=== PATIENT | female | born 1990 | race Caucasian/White ===

== ENCOUNTER 2018-09-08 17:00 | Inpatient (IN) | payer OTHER ==
[~2018-09-08] VITALS: Ht 167.6 cm; Wt 84.5 kg
[2018-09-08 17:24] VITALS: Ht 167.6 cm; Wt 84.5 kg
[2018-09-08 17:25] VITALS: BP 105/65; RESP 18
[2018-09-08] MEDS: LACTATED RINGER'S 1,000 ML IV SCH (18:54)
--- NOTE | 2018-09-08 19:30 | HP ---
Date/Time of Note Date/Time of Note DATE: 09/08/18 TIME: 18:51 OB - History Hx of Present Free Text/Dictation 09/08/2018 : 2 Para: 0 Care: Good Care Other Concerns: 27 years old with care with [facility] and non complicated care, transferred from [place] today due to insurance issue after she presented to ED for cat bite and scratch care with Dr. Oren Duvall at [facility],. Denies any complication. Stated JUMA: 10/13/2018 she states that was bitten and scratched by an outdoor cat yesterday at 7: 00 PM and due to pain and swelling of her RT hand in the area of bite, presented to [facility]. Patient cat was outdoor. Reports relief manager of the cat that was a family member, 7 years ago fed the cat first and had him since then. She unsure if the cat's vaccination was complete or not, but believes heard from her family member that he is current for shots. She denies any known reported behaviour in the cat. States [place] now. Records reviewed. Patient had an x-ray after evaluated in the emergency room of her right hand which was essentially unremarkable. She also had started on Unisom. Patient denied any leaking of fluid, vaginal bleeding or decreased movement. She denies any obstetrical condition and complaints. She had been seen at [facility] by RETAIL SALES ADVISOR and had a NST that was apparently unremarkable except loss of accelerations since the patient had been receiving IV morphine in the emergency room. Records also telephone consult was placed in the emergency room which recommended continuing expectant management and antibiotics as long as the swelling and pain does not worsen. Patient currently reports worsening of her pain. Has been receiving IV morphine and IV Tylenol and a regular basis due to pain. She is unable to move her fingers and experienced significant pain up and movement of the MCPs. She denies any fever or chills. Past Family/Social History * Past Medical, Surgical, Family and Obstetric Histories reviewed from chart. OB Admission Exam Vital Signs Vital Signs Vital Signs Date Temp Pulse Resp B/P (MAP) Pulse Ox O2 O2 Flow FiO2 Time Delivery Rate 09/08/18 98.6 18 105/65 Room Air 17:25 (78) Physical Exam HEENT: WNL Heart: Rhythm Normal Lungs: Clear Abdomen: WNL Extremities: Other (There is two small opening on the dorsum of the RT hand in the area of cat's bite with moderate swelling on the dorsum of the RT hand, There is moderate to severe tenderness in the area of swelling and cat bite. there is no drainage from the area. ) Varibility: Moderate Contractions on Admission: None OB Assessment/Plan Other Assessment: IUP at 35 weeks by stated date RT hand pain after cat bite and scratch Significant pain in the area and moderate swelling Initial Xray in ED at [facility], per report was negative She does not have currently any obstetrical problems. On Antibiotics, has received Unsyum at [facility], Symptoms progressing ID and Ortho consulted Due to Risk for MRSA, I will start her on Vancomycin, until I receive ID recommendation. Called Dr. Mary hitchcock, agreed to see the patient urgently ID consult placed.Talked to [facility] urgent line and talked to FIRESETTER who agreed to see the patient urgently Medicine aware, as I was called in am by Hospitalist, who agreed to see and follow up and coordinate the care after admission and aware Labs, CBC, Type and screen Keep the patient NPO in case patient needs any procedure especially hand surgery. IV fluids Patient states received Tdap 3 days ago. Fiance states the cat was a barn cat, and according to his knowledge, cat received Rabies shot and was up to date for all immunization. He will attempt to provide the proof of vaccination soon. Follow up with ID for recommendation. NST/ BPP and EFW by OB ultrasound wound care, keeping clean with Betadine. Plan of care discussed with the patient and RN VIANEY ROMERO MD Sep 08, 2018 19:23
[2018-09-08] MEDS ORDERED: VANCOMYCIN IV PER PHARMACY XX SCH (20:00)
[2018-09-08] MEDS ORDERED: AMPICILLIN/SULB 3 GM/NS (PMX) 100 ML IVPB SCH (20:00)
[2018-09-08] MEDS: morphine 4 MG/ML VIAL IV PRN (20:33)
[2018-09-08] MEDS ORDERED: VANCOMYCIN HCL 1.75 GM in SOD CHLORIDE 0.9% 500 ML IVPB ONE (21:00)
[2018-09-08] MEDS ORDERED: ACETAMINOPHEN 325 MG TAB PO PRN (21:00)
[2018-09-09] MEDS: HYDROCODONE/APAP (7.5/325) TAB PO PRN ×3 (00:07→16:34)
[2018-09-09] MEDS: PRENATAL VITAMIN PO SCH ×2 (00:46→22:55)
--- NOTE | 2018-09-09 01:00 | CONS ---
DATE OF ADMISSION: 09/08/2018 DATE OF CONSULTATION: 09/08/2018 TYPE OF CONSULTATION: Infectious disease. REASON FOR CONSULTATION: Antibiotic management. HISTORY OF PRESENT ILLNESS: Santa Fletcher is a 27-year-old female, 2, who comes in now wit h cat bite and is being seen for antibiotic management. The patient is I believe 35 weeks H er JUMA is 10/13/2018. She was bitten and scratched by an outdoor cat yesterday at 7:00 p.m. Due to pain and swelling of the right hand, she went to [facility]. The cat is supposedly family membe r. She is unsure of the cat's vaccinations are complete but believes that ____ from her family membe rs that the cat is ____. She denies any fever or chills. She lives in ____ now. X-ray of the right hand was essentially unremarkable. She was started on Unasyn. She denies any other specific proble ms. She was seen at [facility] and was admitted to the hospital. PAST MEDICAL HISTORY: Operations as outlined. FAMILY HISTORY: Noncontributory. SOCIAL HISTORY: She does not smoke, drink or abuse drugs. ALLERGIES: NONE TO PENICILLIN, SULFA OR FOODS. MEDICATIONS: Per chart. REVIEW OF SYSTEMS: Noncontributory. PHYSICAL EXAMINATION: GENERAL: She is a well-developed, well-nourished, somewhat obese female, awake, responsive, in no ac [place] distress. VITAL SIGNS: Stable. She is afebrile. SKIN: Without generalized rash. HEENT: Within normal limits. NECK: Supple. LYMPH NODES: None palpable. CHEST: Decreased breath sounds at the bases. HEART: Without murmur or gallop. ABDOMEN: Soft. She is obviously 35 weeks. EXTREMITIES: There are 2 small openings on the dorsum of the right hand in the area of the cat bite with moderate swelling on the dorsum of the right hand, moderate to severe tenderness in the area of the swelling. No drainage from the area. RECTAL AND GENITAL: Deferred. NEUROLOGIC: No focal neurological abnormality. IMPRESSION AND PLAN: I agree with Unasyn 3 grams IV piggyback q.6h. The hand should be elevated on 3 pillows or on an IV pole. She should be seen by orthopedics. I will dictate my findings to Dr. Adalberto echevarria and to Dr. Randle. Of note, the patient's white count 13.7, H and H of 10.3 and 31.1, platelet count 216,000. BUN and creatinine is 9/0.54. Dictated By: LA LINCOLN MD, JD/NTS Conf#: [id number] DID#: [id number] CC: VIANEY RANDLE MD; TARUN ARELLANO;*End*
--- NOTE | 2018-09-09 01:06 | CONS ---
DATE OF ADMISSION: 09/08/2018 DATE OF CONSULTATION: 09/08/2018 TYPE OF CONSULTATION: Orthopedic surgical. HISTORY OF PRESENT ILLNESS: The patient is a 27-year-old female female who is going t hrough the care who was transferred in from the emergency room of the [facility] to [facility] because of the insurance arrangement. She went to the emergency room of [facility] because of the pain and swelling involving the dorsum of her right hand after susta ining outdoor cat bite 1 day prior to her admission. Following the cat bite, she was experiencing in creasing pain and showed up to the emergency room. PHYSICAL EXAMINATION: My examination revealed a 27-year-old female who was not in any acute distress . There was 2 puncture alberto over the dorsum of her right hand with minimal swelling. There were no obvious signs of any fluid collection. There were no signs of extensive cellulitis. The cat bite m ark was sealed and there were no obvious purulent drainage. There were no signs of any ascending lym phangitis. The range of motion of the fingers is full with minimal pain. There were no signs of int erruption of the tendinous structures and passive range of motion was not provoking any increasing pa in. RADIOLOGY: Evaluation of the right hand was reportedly negative. LABORATORY DATA: The patient was showing minimal leukocytosis at the time of admission with a WBC co unt of 13.7. However, she was afebrile and she is afebrile now. DIAGNOSTIC IMPRESSION: Cat bite over the dorsum of the right hand without any signs of tendinous inj uries or abscess or cellulitis. RECOMMENDATIONS FOR MANAGEMENT: Warm compress. IV antibiotics per infectious disease. No further o rtho followup seems to be indicated. Dictated By: CEDRIC JULIEN MD IK/NTS Conf#: [id number] DID#: [id number] CC: VIANEY ROMERO MD; TARUN ARELLANO;*End*
[2018-09-09] MEDS: AMPICILLIN/SULB 3 GM/NS (PMX) 100 ML IVPB SCH ×4 (01:22→20:04)
--- NOTE | 2018-09-09 01:22 | TRIAGE ---
OB Triage Datetime Report Generated by CPN: 09/09/2018 01:22 Datetime: 09/09/2018 00:50 Monitor Mode: External US Datetime: 09/09/2018 00:49 Labor Evaluation Frequency: none Monitor Mode: External Heart Rate FHR Baseline Rate: 125 Monitor Mode: External US Variability: Moderate 6-25 bpm Accelerations: 15X15 Decelerations: None Category: Category I Datetime: 09/09/2018 00:08 Monitor Mode: External US Datetime: 09/08/2018 23:30 Labor Evaluation Frequency: NONE Monitor Mode: External Heart Rate FHR Baseline Rate: 135 Monitor Mode: External US Variability: Moderate 6-25 bpm Accelerations: None Decelerations: None Category: Category I Datetime: 09/08/2018 23:10 Assessment Type: Admission Assessment Vaginal Bleeding: None Maternal Assessment Level of Consciousness: Fully Conscious DTR's/Clonus: DTRs 2+; No Clonus Headache: Denies Blurred Vision: No Respiratory Effort: Unlabored; Regular Rhythm; Equal Expansion Breath Sounds, Left: Clear and Equal Breath Sounds, Right: Clear and Equal Nausea/Vomiting: Denies RUQ Epigastric Pain: Denies Lower Extremities Edema: None Degree: None Upper Extremities Edema: None Degree: None Facial Edema: None Fall Risk Assessment History of Falling: (0) No Secondary Diagnosis: (0) No Ambulatory Aid: (0) Bedrest/Nurse Assist IV Therapy: (20) Yes Gait: (0) Normal/Bedrest/Immobile Mental Status: (0) Oriented to Own Ability Fall Score: 20 Fall Risk Score Definition: No Risk: No action required Pain Assessment Pain Scale: 7 Pain Presence: Constant Pain Type: Ache Pain Location: Right Hand Pain Goal: 0 Datetime: 09/08/2018 23:04 Monitor Mode: External Monitor Mode: External US Datetime: 09/08/2018 22:30 Monitor Mode: External Pattern: Normal: <= 5 Contractions in 10 Minutes Heart Rate FHR Baseline Rate: 135 Monitor Mode: External US Variability: Moderate 6-25 bpm Accelerations: 15X15 Decelerations: None Datetime: 09/08/2018 22:00 Comments: PT OFF MONITOR Datetime: 09/08/2018 21:00 Monitor Mode: External Pattern: Normal: <= 5 Contractions in 10 Minutes Heart Rate FHR Baseline Rate: 135 Monitor Mode: External US Variability: Moderate 6-25 bpm Datetime: 09/08/2018 20:29 Monitor Mode: External US Datetime: 09/08/2018 20:00 Monitor Mode: External Pattern: Normal: <= 5 Contractions in 10 Minutes Heart Rate FHR Baseline Rate: 135 Monitor Mode: External US Variability: Moderate 6-25 bpm Accelerations: 15X15 Decelerations: None Comments: LOSS OF CONTACT Datetime: 09/08/2018 19:05 Vaginal Exam Membrane Status: Intact Datetime: 09/08/2018 19:00 Heart Rate FHR Baseline Rate: 130 Monitor Mode: External US FHR Baseline Changes: No Baseline Change Variability: Moderate 6-25 bpm Accelerations: 15X15 Decelerations: None Category: Category I Datetime: 09/08/2018 18:30 Labor Evaluation Frequency: 0 Monitor Mode: External Heart Rate FHR Baseline Rate: 125 Monitor Mode: External US FHR Baseline Changes: No Baseline Change Variability: Moderate 6-25 bpm Accelerations: 15X15 Decelerations: None Category: Category I Datetime: 09/08/2018 18:00 Labor Evaluation Frequency: 0 Monitor Mode: External Heart Rate FHR Baseline Rate: 125 Monitor Mode: External US FHR Baseline Changes: No Baseline Change Variability: Moderate 6-25 bpm Accelerations: 15X15 Decelerations: None Category: Category I Pain Assessment Pain Scale: 8 Pain Assessment Comments: cat bite pain Datetime: 09/08/2018 17:17 Stage of : OB Triage Assessment Type: Triage Maternal Assessment Level of Consciousness: Fully Conscious DTR's/Clonus: DTRs 2+; No Clonus Headache: Denies Blurred Vision: No Respiratory Effort: Unlabored; Regular Rhythm; Equal Expansion Breath Sounds, Left: Clear and Equal Breath Sounds, Right: Clear and Equal Nausea/Vomiting: Denies RUQ Epigastric Pain: Denies Lower Extremities Edema: None Degree: None Upper Extremities Edema: None Facial Edema: None Temperature Route: Oral Fall Risk Assessment History of Falling: (0) No Secondary Diagnosis: (0) No Ambulatory Aid: (0) Bedrest/Nurse Assist IV Therapy: (0) No Gait: (0) Normal/Bedrest/Immobile Mental Status: (0) Oriented to Own Ability Fall Score: 0 Fall Risk Score Definition: No Risk: No action required Datetime: 09/08/2018 17:12 Time of Arrival: 09/08/2018 22:30 EGA: 35.0 Arrived By: Ambulatory Arrived From: OB TRIAGE Datetime: 09/08/2018 17:11 Time of Arrival: 09/08/2018 16:50 Arrived By: Ambulance Arrived From: Other Unit in Hospital Chief Complaint: pain from cat bite Movement: Present Contractions: Denies/Absent Rupture of Membranes: Denies Vaginal Bleeding: None Vaginal Discharge: Denies Recent Sexual Intercouse: Denies Abdominal Trauma: Not Applicable Patient Complaints: Other Provider Notified: ARDALAN Datetime: 09/08/2018 17:03 Stage of : OB Triage
[2018-09-09] MEDS: ONDANSETRON 4 MG INJ IV PRN ×4 (05:26→22:58)
[2018-09-09] MEDS: LACTATED RINGER'S 1,000 ML IV SCH ×2 (07:48→19:00)
[2018-09-09] MEDS: morphine 4 MG/ML VIAL IV PRN (07:55)
[2018-09-09] MEDS ORDERED: AMPICILLIN/SULB 3 GM/NS (PMX) 100 ML IVPB SCH (08:00)
--- NOTE | 2018-09-09 08:19 | CONS ---
[facility] HCIS Consult Follow-up Patient Name: Santa Fletcher Unit Number: [id number] Date of : 1990 Patient Status: Admitted Inpatient Attending Doctor: Daniela Randle MD Edit: TARUN ARELLANO MD on 09/09/18 @ 14:55 pt was seen and examined with [facility] hand cat bite > in unasyn, WBC 13, ELEVATED RT HAND, Seen by ortho/ ID no surgical intervention, able to flex fingers and make fist 35 weeks > managed by OBG Assessment/Plan Assessment/Plan Hospital Course (Demo Recall) 1. Cat bite and edema of the right hand 2. [id number] normochromic anemia 3. Hyponatremia. No previous Na level is available 4. 35 weeks Assessment/Plan (Daily) -c/w Vanco and ampicillin -no rabies vaccine needed -toxoplasma ab pending -spoke to pt to avoid cats and their litter -warm compresses -pain medication -avoid nephrotoxic drugs -monitoring NA daily -dc planning tomorrow Consultation Date/Type/Reason Admit Date/Time Sep 08, 2018 at 21:12 Initial Consult Date 09/07/2018 Type of Consult internal medicine Date/Time of Note DATE: 09/09/18 TIME: 08:17 24 HR Interval Summary Free Text/Dictation right hand pain Exam/Review of Systems Exam Vitals Vital Signs Date Temp Pulse Resp B/P (MAP) Pulse Ox O2 O2 Flow FiO2 Time Delivery Rate 09/08/18 98.6 18 105/65 Room Air 17:25 (78) Intake and Output 09/08/18 09/08/18 09/09/18 1515:00 23:00 07:00 IntakeIntake Total 925 ml OutputOutput Total 300 ml BalanceBalance 625 ml Constitutional: alert, oriented Neck: supple Respiratory: clear to auscultation Cardiovascular: regular rate and rhythm Gastrointestinal: soft, other () Musculoskeletal: swelling (right hand with 2 wounds on dorsal area and one palm) Results Result Diagram: 09/08/18192309/08/184 Results 24hrs Laboratory Tests Test 09/08/18 19:24 White Blood Count 13.7 H Red Blood Count 3.50 L Hemoglobin 10.3 L Hematocrit 31.1 L Mean Corpuscular Volume 88.9 Mean Corpuscular Hemoglobin 29.4 Mean Corpuscular Hemoglobin Concent 33.1 Red Cell Distribution Width 12.6 Platelet Count 216 Mean Platelet Volume 11.3 H Immature Granulocytes % 0.700 H Neutrophils % 84.4 H Lymphocytes % 8.0 L Monocytes % 6.4 Eosinophils % 0.2 Basophils % 0.3 Nucleated Red Blood Cells % 0.0 Immature Granulocytes # 0.100 H Neutrophils # 11.6 H Lymphocytes # 1.1 Monocytes # 0.9 Eosinophils # 0.0 Basophils # 0.0 Nucleated Red Blood Cells # 0.0 Sodium Level 134 L Potassium Level 3.6 Chloride Level 101 Carbon Dioxide Level 21 Anion Gap 12 Blood Urea Nitrogen 9 Creatinine 0.54 Est Glomerular Filtrat Rate mL/min > 60 Glucose Level 149 Calcium Level 9.4 Medications Medication Current Medications Lactated Ringer's 1,000 ml @ 125 mls/hr Q8H IV Last administered on 09/09/18at 07:48; Admin Dose 125 MLS/HR; Start 09/08/18 at 19:00 Morphine Sulfate (morphine) 3 mg Q3H PRN IV SEVERE PAIN LEVEL 7-10 Last administered on 09/09/18at 07:55; Admin Dose 3 MG; Start 09/08/18 at 19:30 Acetaminophen/ Hydrocodone Bitart ([place] (7.5-325)) 1 tab Q4H PRN PO MODERATE PAIN LEVEL 4-6 Last administered on 09/09/18at 00:07; Admin Dose 1 TAB; Start 09/08/18 at 21:30 Acetaminophen (Tylenol Tab) 650 mg Q6H PRN PO MILD PAIN(1-3)OR ELEVATED TEMP; Start 09/08/18 at 21:00 Ampicillin Sodium/ Sulbactam Sodium 100 ml @ 100 mls/hr Q6 IVPB Last administered on 09/09/18at 07:59; Admin Dose 100 MLS/HR; Start 4/21/19 at 00:00 Prenat Multivit/ [place]/Iron/Folic Ac () 1 tab DAILY PO Last a dministered on 09/09/18at 00:46; Admin Dose 1 TAB; Start 09/09/18 at 00:00 Docusate Sodium (Colace) 100 mg DAILY PRN PO constipation; Start 09/09/18 at 09:00 Ondansetron HCl (Zofran Inj) 4 mg Q6H PRN IV NAUSEA AND/OR VOMITING Last administered on 09/09/18at 05:26; Admin Dose 4 MG; Start 09/09/18 at 00:30 ABIGAIL MEJIA Sep 09, 2018 08:19
[2018-09-09] MEDS ORDERED: VANCOMYCIN 1 GM 250 ML IVPB SCH (09:00)
--- NOTE | 2018-09-09 12:52 | CONS ---
Assessment/Plan Assessment/Plan Hospital Course (Demo Recall) No acute events overnight patient is alert feels better looks comfortable no fevers. No labs this morning. Wound cultures pending preliminary negative. Patient is on Unasyn, status post Vanco dose Physical examination: Young well-developed white woman who is alert in no distress. Head atraumatic normocephalic. Neck is supple. Chest rise symmetrical breath sounds clear heart S1-S2 abdomen soft bowel sounds present extremities with right hand swelling, no erythema no drainage patient able to move her fingers Assessment: Right hand cellulitis status post cat bite Plan: Patient is doing better on current antibiotics, order recommendations noted, continue right hand elevation and warm moist compresses Consultation Date/Type/Reason Admit Date/Time Sep 08, 2018 at 21:12 Initial Consult Date Type of Consult id Date/Time of Note DATE: 09/09/18 TIME: 12:52 Exam/Review of Systems Exam Vitals Vital Signs Date Temp Pulse Resp B/P (MAP) Pulse Ox O2 O2 Flow FiO2 Time Delivery Rate 09/08/18 98.6 18 105/65 Room Air 17:25 (78) Intake and Output 09/08/18 09/08/18 09/09/18 1515:00 23:00 07:00 IntakeIntake Total 925 ml OutputOutput Total 300 ml BalanceBalance 625 ml Results Result Diagram: 09/08/18192309/08/184 Results 24hrs Laboratory Tests Test 09/08/18 19:24 White Blood Count 13.7 H Red Blood Count 3.50 L Hemoglobin 10.3 L Hematocrit 31.1 L Mean Corpuscular Volume 88.9 Mean Corpuscular Hemoglobin 29.4 Mean Corpuscular Hemoglobin Concent 33.1 Red Cell Distribution Width 12.6 Platelet Count 216 Mean Platelet Volume 11.3 H Immature Granulocytes % 0.700 H Neutrophils % 84.4 H Lymphocytes % 8.0 L Monocytes % 6.4 Eosinophils % 0.2 Basophils % 0.3 Nucleated Red Blood Cells % 0.0 Immature Granulocytes # 0.100 H Neutrophils # 11.6 H Lymphocytes # 1.1 Monocytes # 0.9 Eosinophils # 0.0 Basophils # 0.0 Nucleated Red Blood Cells # 0.0 Sodium Level 134 L Potassium Level 3.6 Chloride Level 101 Carbon Dioxide Level 21 Anion Gap 12 Blood Urea Nitrogen 9 Creatinine 0.54 Est Glomerular Filtrat Rate mL/min > 60 Glucose Level 149 Calcium Level 9.4 Medications Medication Current Medications Lactated Ringer's 1,000 ml @ 125 mls/hr Q8H IV Last administered on 09/09/18 07:48; Admin Dose 125 MLS/HR; Start 09/08/18 at 19:00 Morphine Sulfate (morphine) 3 mg Q3H PRN IV SEVERE PAIN LEVEL 7-10 Last administered on 09/09/18 07:55; Admin Dose 3 MG; Start 09/08/18 at 19:30 Acetaminophen/ Hydrocodone Bitart ([place] (7.5-325)) 1 tab Q4H PRN PO MODERATE PAIN LEVEL 4-6 Last administered on 09/09/18 11:57; Admin Dose 1 TAB; Start 09/08/18 at 21:30 Acetaminophen (Tylenol Tab) 650 mg Q6H PRN PO MILD PAIN(1-3)OR ELEVATED TEMP; Start 09/08/18 at 21:00 Ampicillin Sodium/ Sulbactam Sodium 100 ml @ 100 mls/hr Q6 IVPB Last a dministered on 09/09/18 07:59; Admin Dose 100 MLS/HR; Start 09/09/18 at 00:00 Prenat Multivit/ Customer Specialist/Iron/Folic Ac () 1 tab DAILY PO Last administered on 09/09/18 00:46; Admin Dose 1 TAB; Start 09/09/18 at 00:00 Docusate Sodium (Colace) 100 mg DAILY PRN PO constipation; Start 09/09/18 at 09:00 Ondansetron HCl (Zofran Inj) 4 mg Q6H PRN IV NAUSEA AND/OR VOMITING Last administered on 09/09/18 05:26; Admin Dose 4 MG; Start 09/09/18 at 00:30 CHANDAN JOYA NP Sep 09, 2018 12:52
[2018-09-09] MEDS: HYDROCODONE/APAP (5/325) TAB GTB PRN (21:49)
--- NOTE | 2018-09-09 23:04 | QN ---
Documentation Comment 27 y.o at 35w transferred from [facility] after immediate care for cat bite on right dorsum of hand. around 1900 yesterday placed on vancomycin and unasyn and d/cd vancomycin after one dose RN who is taking care of patient called me reguarding antibiotics, and found that ID consultation not obtained. which requested and was recommended to continue unasyn only. patient receiced Tdap 4days ago , and found the cat had completed vaccinations rhight hand hase piercing ester with scratch with mildly swollen,which is reduced markedly compare to yesterday according to patient. Plan continue unasyn and f/u with ID and her OB RAVINDRA JULIEN MD Sep 09, 2018 23:04
[2018-09-10] MEDS: AMPICILLIN/SULB 3 GM/NS (PMX) 100 ML IVPB SCH ×5 (02:06→23:40)
[2018-09-10] MEDS: ONDANSETRON 4 MG INJ IV PRN ×3 (03:35→12:47)
[2018-09-10] MEDS: DOCUSATE SODIUM 100 MG CAP PO PRN (03:36)
[2018-09-10] MEDS: HYDROCODONE/APAP (5/325) TAB GTB PRN ×6 (03:37→23:59)
[2018-09-10] MEDS: LACTATED RINGER'S 1,000 ML IV SCH ×5 (03:42→17:43)
[2018-09-10] MEDS: PRENATAL VITAMIN PO SCH (09:00)
--- NOTE | 2018-09-10 14:37 | CONS ---
Assessment/Plan Assessment/Plan Hospital Course (Demo Recall) Alert, feels better Patient is on Unasyn, status post Vanco dose Physical examination: Young well-developed white woman who is alert in no distress. Head atraumatic normocephalic. Neck is supple. Chest rise symmetrical breath sounds clear heart S1-S2 abdomen soft bowel sounds present extremities with right hand swelling, no erythema no drainage patient able to move her fingers Assessment: Right hand cellulitis status post cat bite Plan: R hand with decreased swelling, continue abd/hand elevation and warm moist compresses Consultation Date/Type/Reason Admit Date/Time Sep 08, 2018 at 21:12 Initial Consult Date Type of Consult id Date/Time of Note DATE: 09/10/18 TIME: 14:36 Exam/Review of Systems Exam Vitals Vital Signs Date Temp Pulse Resp B/P (MAP) Pulse Ox O2 O2 Flow FiO2 Time Delivery Rate 09/08/18 98.6 18 105/65 Room Air 17:25 (78) Intake and Output 09/09/18 09/09/18 09/10/18 1515:00 23:00 07:00 IntakeIntake Total 950 ml 100 ml 350 ml OutputOutput Total 2100 ml 250 ml 600 ml BalanceBalance -1150 ml -150 ml -250 ml Results Result Diagram: 09/10/18 0615 09/10/18 0615 Results 24hrs Laboratory Tests Test 09/10/18 06:15 White Blood Count 8.9 # Red Blood Count 3.41 L Hemoglobin 10.2 L Hematocrit 30.3 L Mean Corpuscular Volume 88.9 Mean Corpuscular Hemoglobin 29.9 Mean Corpuscular Hemoglobin Concent 33.7 Red Cell Distribution Width 12.6 Platelet Count 195 Mean Platelet Volume 11.8 H Immature Granulocytes % 0.800 H Neutrophils % 69.3 Lymphocytes % 16.4 Monocytes % 11.4 H Eosinophils % 1.6 Basophils % 0.5 Nucleated Red Blood Cells % 0.0 Immature Granulocytes # 0.070 H Neutrophils # 6.2 Lymphocytes # 1.5 Monocytes # 1.0 H Eosinophils # 0.1 Basophils # 0.0 Nucleated Red Blood Cells # 0.0 Sodium Level 135 Potassium Level 4.0 Chloride Level 102 Carbon Dioxide Level 26 Anion Gap 7 Blood Urea Nitrogen 9 Creatinine 0.58 Est Glomerular Filtrat Rate mL/min > 60 Glucose Level 96 # Calcium Level 8.5 Medications Medication Current Medications Lactated Ringer's 1,000 ml @ 125 mls/hr Q8H IV Last administered on 09/10/18 08:46; Admin Dose 125 MLS/HR; Start 09/08/18 at 19:00 Morphine Sulfate (morphine) 3 mg Q3H PRN IV SEVERE PAIN LEVEL 7-10 Last administered on 09/09/18 07:55; Admin Dose 3 MG; Start 09/08/18 at 19:30 Acetaminophen (Tylenol Tab) 650 mg Q6H PRN PO MILD PAIN(1-3)OR ELEVATED TEMP; Start 09/08/18 at 21:00 Ampicillin Sodium/ Sulbactam Sodium 100 ml @ 100 mls/hr Q6 IVPB Last administered on 09/10/18 10:36; Admin Dose 100 MLS/HR; Start 09/09/18 at 00:00 Prenat Multivit/ Fitness And Wellness Director/Iron/Folic Ac () 1 tab DAILY PO Last administered on 09/09/18 22:55; Admin Dose 1 TAB; Start 09/09/18 at 00:00 Docusate Sodium (Colace) 100 mg DAILY PRN PO constipation Last administered on 09/10/18 03:36; Admin Dose 100 MG; Start 09/09/18 at 09:00 Ondansetron HCl (Zofran Inj) 4 mg Q6H PRN IV NAUSEA AND/OR VOMITING Last administered on 09/10/18 12:47; Admin Dose 4 MG; Start 09/09/18 at 00:30 Acetaminophen/ Hydrocodone Bitart ([place] (5/325)) 1 tab Q4H PRN GTB MODERATE PAIN LEVEL 4-6 Last administered on 09/10/18 11:38; Admin Dose 1 TAB; Start 09/09/18 at 22:00 CHANDAN JOYA NP Sep 10, 2018 14:37
--- NOTE | 2018-09-10 16:53 | CONS ---
Assessment/Plan Assessment/Plan Assessment/Plan (Daily) 27 y/o with 1. Cat bite and edema of the right hand 2. [id number] normochromic anemia 3. Hyponatremia. No previous Na level is available 4. 35 weeks 5 leukocytosis secondary to #1 improved Assessment/Plan (Daily) -On Unasyn clinically improving, patient was seen by Ortho and ID -spoke to pt to avoid cats and their litter -warm compresses -pain medication --Cultures have been negative so far -avoid nephrotoxic drugs DC planning when cleared by ID Consultation Date/Type/Reason Admit Date/Time Sep 08, 2018 at 21:12 Initial Consult Date Date/Time of Note DATE: 09/10/18 TIME: 16:51 24 HR Interval Summary Free Text/Dictation Feels better today Able to make a fist now with hand Exam/Review of Systems Exam Vitals Vital Signs Date Temp Pulse Resp B/P (MAP) Pulse Ox O2 O2 Flow FiO2 Time Delivery Rate 09/08/18 98.6 18 105/65 Room Air 17:25 (78) Intake and Output 09/09/18 09/09/18 09/10/18 1515:00 23:00 07:00 IntakeIntake Total 950 ml 100 ml 350 ml OutputOutput Total 2100 ml 250 ml 600 ml BalanceBalance -1150 ml -150 ml -250 ml Exam Constitutional: alert, oriented Neck: supple Respiratory: clear to auscultation Cardiovascular: regular rate and rhythm Gastrointestinal: soft, other () Musculoskeletal: swelling (right hand with 2 wounds on dorsal area and one palm) swelling much and redness much improved now able to make a fist Results Result Diagram: 09/10/18 0615 09/10/18 0615 Results 24hrs Laboratory Tests Test 09/10/18 06:15 White Blood Count 8.9 # Red Blood Count 3.41 L Hemoglobin 10.2 L Hematocrit 30.3 L Mean Corpuscular Volume 88.9 Mean Corpuscular Hemoglobin 29.9 Mean Corpuscular Hemoglobin Concent 33.7 Red Cell Distribution Width 12.6 Platelet Count 195 Mean Platelet Volume 11.8 H Immature Granulocytes % 0.800 H Neutrophils % 69.3 Lymphocytes % 16.4 Monocytes % 11.4 H Eosinophils % 1.6 Basophils % 0.5 Nucleated Red Blood Cells % 0.0 Immature Granulocytes # 0.070 H Neutrophils # 6.2 Lymphocytes # 1.5 Monocytes # 1.0 H Eosinophils # 0.1 Basophils # 0.0 Nucleated Red Blood Cells # 0.0 Sodium Level 135 Potassium Level 4.0 Chloride Level 102 Carbon Dioxide Level 26 Anion Gap 7 Blood Urea Nitrogen 9 Creatinine 0.58 Est Glomerular Filtrat Rate mL/min > 60 Glucose Level 96 # Calcium Level 8.5 Medications Medication Current Medications Lactated Ringer's 1,000 ml @ 125 mls/hr Q8H IV Last administered on 09/10/18 08:46; Admin Dose 125 MLS/HR; Start 09/08/18 at 19:00 Morphine Sulfate (morphine) 3 mg Q3H PRN IV SEVERE PAIN LEVEL 7-10 Last administered on 09/09/18 07:55; Admin Dose 3 MG; Start 09/08/18 at 19:30 Acetaminophen (Tylenol Tab) 650 mg Q6H PRN PO MILD PAIN(1-3)OR ELEVATED TEMP; Start 09/08/18 at 21:00 Ampicillin Sodium/ Sulbactam Sodium 100 ml @ 100 mls/hr Q6 IVPB Last administered on 09/10/18 10:36; Admin Dose 100 MLS/HR; Start 09/09/18 at 00:00 Prenat Multivit/ [place]/Iron/Folic Ac () 1 tab DAILY PO Last adm inistered on 09/09/18 22:55; Admin Dose 1 TAB; Start 09/09/18 at 00:00 Docusate Sodium (Colace) 100 mg DAILY PRN PO constipation Last administered on 09/10/18 03:36; Admin Dose 100 MG; Start 09/09/18 at 09:00 Ondansetron HCl (Zofran Inj) 4 mg Q6H PRN IV NAUSEA AND/OR VOMITING Last administered on 09/10/18 12:47; Admin Dose 4 MG; Start 09/09/18 at 00:30 Acetaminophen/ Hydrocodone Bitart ([place] (5/325)) 1 tab Q4H PRN GTB MODERATE PAIN LEVEL 4-6 Last administered on 09/10/18 15:33; Admin Dose 1 TAB; Start 09/09/18 at 22:00 TARUN ARELLANO MD Sep 10, 2018 16:53
--- NOTE | 2018-09-10 19:02 | QN ---
Documentation Comment progress note patient seen and evaluated no complaints vs stable afebrile lung normal ab gravid nt extremity no calf tenderness, mild cellulitis dorsum of left hand with limited range of motion of fingers and wrist a/ iup at 35 wks ga, cellulitis of dorsum of right hand, currently on antibiotics p/ f/u with infectious disease specialist for possible discharge home with oral antibiotics BRITTANY MENDEZ MD Sep 10, 2018 19:02
[2018-09-11] MEDS: CALCIUM CARBONATE 1.25 GM TAB PO SCH ×2 (00:27→22:02)
[2018-09-11] MEDS: DOCUSATE SODIUM 100 MG CAP PO PRN (00:40)
[2018-09-11] MEDS: PRENATAL VITAMIN PO SCH ×2 (00:41→22:03)
[2018-09-11] MEDS: FOLIC ACID 1 MG TAB PO SCH ×2 (00:41→22:02)
[2018-09-11] MEDS: LACTATED RINGER'S 1,000 ML IV SCH ×4 (03:41→22:03)
[2018-09-11] MEDS: HYDROCODONE/APAP (5/325) TAB GTB PRN ×5 (04:00→19:18)
--- NOTE | 2018-09-11 04:57 | QN ---
Documentation Comment progress note patient seen and evaluated no complaints vs stable afebrile lung normal ab gravid nt extremity no calf tenderness, mild cellulitis dorsum of left hand with limited range of motion of fingers and wrist a/ iup at 35 wks ga, cellulitis of dorsum of right hand, currently on antibiotics p/ f/u with infectious disease specialist for possible discharge home with oral antibiotics BRITTANY MENDEZ MD Sep 11, 2018 04:57
[2018-09-11] MEDS: AMPICILLIN/SULB 3 GM/NS (PMX) 100 ML IVPB SCH ×4 (05:39→23:57)
[2018-09-11] MEDS: DOCUSATE SODIUM 100 MG CAP PO SCH ×2 (08:31→21:22)
[2018-09-11] MEDS: ONDANSETRON 4 MG INJ IV PRN (08:53)
[2018-09-11] MEDS ORDERED: FOLIC ACID 1 MG TAB PO SCH (09:00)
[2018-09-11] MEDS ORDERED: CALCIUM CARBONATE 1.25 GM TAB PO SCH (09:00)
--- NOTE | 2018-09-11 13:27 | CONS ---
Assessment/Plan Assessment/Plan Assessment/Plan (Daily) 27 y/o with 1. Cat bite and edema of the right hand 2. [id number] normochromic anemia 3. Hyponatremia. No previous Na level is available 4. 35 weeks 5 leukocytosis secondary to #1 improved Assessment/Plan (Daily) -On Unasyn clinically improving, patient was seen by Ortho and ID -spoke to pt to avoid cats and their litter -warm compresses -pain medication --Cultures have been negative so far -avoid nephrotoxic drugs pt can be discharged on po abx per ID for 5 days augmentin cleared to dc from [facility] on po abx Consultation Date/Type/Reason Admit Date/Time Sep 08, 2018 at 21:12 Initial Consult Date Date/Time of Note DATE: 09/11/18 TIME: 13:24 24 HR Interval Summary Free Text/Dictation Feels a lot better. Swelling is much improved Exam/Review of Systems Exam Vitals Vital Signs Date Temp Pulse Resp B/P (MAP) Pulse Ox O2 O2 Flow FiO2 Time Delivery Rate 09/08/18 98.6 18 105/65 Room Air 17:25 (78) Intake and Output 09/10/18 09/10/18 09/11/18 1515:00 23:00 07:00 IntakeIntake Total 1100 ml 1000 ml 2450 ml OutputOutput Total 2100 ml BalanceBalance 1100 ml 1000 ml 350 ml Exam Constitutional: alert, oriented Neck: supple Respiratory: clear to auscultation Cardiovascular: regular rate and rhythm Gastrointestinal: soft, other () Musculoskeletal: swelling (right hand with 2 wounds on dorsal area and one palm) swelling much and redness much improved now able to make a fist Results Result Diagram: 09/10/18 0615 09/10/18 0615 Results 24hrs Laboratory Tests Test 09/11/18 06:13 Lab Scanned Report REFERENCE LAB Medications Medication Current Medications Lactated Ringer's 1,000 ml @ 125 mls/hr Q8H IV Last administered on 09/11/18at 11:37; Admin Dose 125 MLS/HR; Start 09/08/18 at 19:00 Morphine Sulfate (morphine) 3 mg Q3H PRN IV SEVERE PAIN LEVEL 7-10 Last administered on 09/09/18at 07:55; Admin Dose 3 MG; Start 09/08/18 at 19:30 Acetaminophen (Tylenol Tab) 650 mg Q6H PRN PO MILD PAIN(1-3)OR ELEVATED TEMP; Start 09/08/18 at 21:00 Ampicillin Sodium/ Sulbactam Sodium 100 ml @ 100 mls/hr Q6 IVPB Last administered on 09/11/18 11:37; Admin Dose 100 MLS/HR; Start 09/09/18 at 00:00 Ondansetron HCl (Zofran Inj) 4 mg Q6H PRN IV NAUSEA AND/OR VOMITING Last administered on 09/11/18 08:53; Admin Dose 4 MG; Start 09/09/18 at 00:30 Acetaminophen/ Hydrocodone Bitart ([place] (5/325)) 1 tab Q4H PRN GTB MODERATE PAIN LEVEL 4-6 Last administered on 09/11/18 12:44; Admin Dose 1 TAB; Start 09/09/18 at 22:00 Prenat Multivit/ [place]/Iron/Folic Ac () 1 tab 2200 PO Last administered on 09/11/18 00:41; Admin Dose 1 TAB; Start 09/11/18 at 00:26 Folic Acid (Folic Acid) 1 mg 2200 PO Last administered on 09/11/18 00:41; Admin Dose 1 MG; Start 09/11/18 at 00:26 Calcium Carbonate ([place]yster Shell Calcium) 1.25 gm 2200 PO ; Start 09/11/18 at 00:27 Docusate Sodium (Colace) 100 mg BID PO Last administered on 09/11/18 08:31; Admin Dose 100 MG; Start 09/11/18 at 09:00 TARUN ARELLANO MD Sep 11, 2018 13:27
--- NOTE | 2018-09-11 14:21 | CONS ---
Assessment/Plan Assessment/Plan Hospital Course (Demo Recall) Alert, feels better Patient is on Unasyn, status post Vanco dose Physical examination: Young well-developed white woman who is alert in no distress. Head atraumatic normocephalic. Neck is supple. Chest rise symmetrical breath sounds clear heart S1-S2 abdomen soft bowel sounds present extremities with right hand swelling, no erythema no drainage patient able to move her fingers Assessment: Right hand cellulitis status post cat bite Plan: Hand looks much better, okay discharge on oral Augmentin for 5 more days Consultation Date/Type/Reason Admit Date/Time Sep 08, 2018 at 21:12 Initial Consult Date Type of Consult id Date/Time of Note DATE: 09/11/18 TIME: 14:21 Exam/Review of Systems Exam Vitals Vital Signs Date Temp Pulse Resp B/P (MAP) Pulse Ox O2 O2 Flow FiO2 Time Delivery Rate 09/08/18 98.6 18 105/65 Room Air 17:25 (78) Intake and Output 09/10/18 09/10/18 09/11/18 1515:00 23:00 07:00 IntakeIntake Total 1100 ml 1000 ml 2450 ml OutputOutput Total 2100 ml BalanceBalance 1100 ml 1000 ml 350 ml Results Result Diagram: 09/10/18 0615 09/10/18 0615 Results 24hrs Laboratory Tests Test 09/11/18 06:13 Lab Scanned Report REFERENCE LAB Medications Medication Current Medications Lactated Ringer's 1,000 ml @ 125 mls/hr Q8H IV Last administered on 09/11/18at 11:37; Admin Dose 125 MLS/HR; Start 09/08/18 at 19:00 Morphine Sulfate (morphine) 3 mg Q3H PRN IV SEVERE PAIN LEVEL 7-10 Last administered on 09/09/18at 07:55; Admin Dose 3 MG; Start 09/08/18 at 19:30 Acetaminophen (Tylenol Tab) 650 mg Q6H PRN PO MILD PAIN(1-3)OR ELEVATED TEMP; Start 09/08/18 at 21:00 Ampicillin Sodium/ Sulbactam Sodium 100 ml @ 100 mls/hr Q6 IVPB Last administered on 09/11/18at 11:37; Admin Dose 100 MLS/HR; Start 09/09/18 at 00:00 Ondansetron HCl (Zofran Inj) 4 mg Q6H PRN IV NAUSEA AND/OR VOMITING Last administered on 09/11/18 08:53; Admin Dose 4 MG; Start 09/09/18 at 00:30 Acetaminophen/ Hydrocodone Bitart ([place] (5/325)) 1 tab Q4H PRN GTB MODERATE PAIN LEVEL 4-6 Last administered on 09/11/18 12:44; Admin Dose 1 TAB; Start 09/09/18 at 22:00 Prenat Multivit/ Administrative Office Specialist/Iron/Folic Ac () 1 tab 2200 PO Last administered on 09/11/18 00:41; Admin Dose 1 TAB; Start 09/11/18 at 00:26 Folic Acid (Folic Acid) 1 mg 2200 PO Last administered on 09/11/18 00:41; Admin Dose 1 MG; Start 09/11/18 at 00:26 Calcium Carbonate (Oyster Shell Calcium) 1.25 gm 2200 PO ; Start 09/11/18 at 00:27 Docusate Sodium (Colace) 100 mg BID PO Last administered on 09/11/18 08:31; Admin Dose 100 MG; Start 09/11/18 at 09:00 CHANDAN JOYA NP Sep 11, 2018 14:21
[2018-09-12] MEDS: HYDROCODONE/APAP (5/325) TAB GTB PRN ×2 (00:09→07:59)
[2018-09-12] MEDS: AMPICILLIN/SULB 3 GM/NS (PMX) 100 ML IVPB SCH (06:13)
[2018-09-12] MEDS: DOCUSATE SODIUM 100 MG CAP PO SCH (07:59)
[2018-09-12] MEDS: ONDANSETRON 4 MG INJ IV PRN (08:21)
--- NOTE | 2018-09-12 11:51 | PD.PPDC ---
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
--- NOTE | 2018-09-13 03:46 | DS ---
DATE OF ADMISSION: 09/08/2018 DATE OF DISCHARGE: 09/12/2018 PRIMARY DIAGNOSIS: Intrauterine at 35 weeks gestational age with cellulitis of right dorsu m hand secondary to cat bite, undelivered. PROCEDURE: None. CONDITION ON DISCHARGE: Stable. ACTIVITY: As tolerated. DIET: Regular. MEDICATIONS ON DISCHARGE: Augmentin 500/125 mg p.o. every 12 hours, #10. DISCHARGE SUMMARY: Ms. Santa Fletcher was transferred from [facility] for treatment of cellulitis of the dorsum of the right hand secondary to cat bite. She was started on IV antibiot ics. She was seen and evaluated by orthopedics and infectious disease. She received IV antibiotics for the period of time she was here. She is going to be discharged on Augmentin. She denies any hea daches, nausea, vomiting, shortness of breath, or visual changes. She reports good movement. She will follow up in the office on her scheduled care visit for followup. Dictated By: BRITTANY CORLEY/GAGAN Conf#: [id number] DID#: [id number]
== END 2018-09-12 12:45 | disposition home or self-care (01) | DRG 832 ==
LOC: OBT 17:00 → EDSTATUS 17:00 → EDBD 17:00 → L-D 17:00 → OBT 21:12 → PP1 09-10 03:47
PROVIDERS: ADMIT Obstetrics & Gynecology; ATTEND Obstetrics & Gynecology
DX: O26.893 Other specified pregnancy related conditions, third trimester (principal); L03.113 Cellulitis of right upper limb; E87.1 Hypo-osmolality and hyponatremia; S61.451A Open bite of right hand, initial encounter; O99.013 Anemia complicating pregnancy, third trimester; W55.01XA Bitten by cat, initial encounter; Z3A.35 35 weeks gestation of pregnancy
CPT/HCPCS: 36415; 76815; 76817; 76818; 80048; 85025; 86777; 86850; 86900; 86901; 87070; 87081; 96360; 97161; G0463; J0295; J2270; J2405; J3370; J7040; J7120

== ENCOUNTER 2018-09-26 20:13 | Outpatient (CLI) | payer OTHER ==
[~2018-09-26] VITALS: Ht 170.2 cm; Wt 88.2 kg
[2018-09-26 20:24] VITALS: BP 92/53; PULSE 114; RESP 20; Ht 170.2 cm; Wt 88.2 kg
[2018-09-26] MEDS ORDERED: PREN-93 PO (20:35)
[2018-09-26] MEDS ORDERED: FOLI-49 PO (20:35)
[2018-09-26] MEDS ORDERED: CALC600T24 PO (20:35)
[2018-09-26] MEDS ORDERED: DOXY1TAB3 PO (20:35)
--- NOTE | 2018-09-27 00:17 | TRIAGE ---
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 Labor Evaluation Frequency: x2 Monitor Mode: External Duration (sec)2399: 60 Quality: Mild Pattern: Normal: <= 5 Contractions in 10 Minutes Resting Tone [place]rehan: Relaxed Heart Rate FHR Baseline Rate: 135 Monitor Mode: External US FHR Baseline Changes: No Baseline Change Variability: Moderate 6-25 bpm Accelerations: 15X15 Decelerations: None Category: Category I Datetime: 09/09/2018 03:00 Labor Evaluation Frequency: 3-4 Monitor Mode: External Duration (sec)2399: 40-50 Quality: Mild Pattern: Normal: <= 5 Contractions in 10 Minutes Resting Tone [place]: Relaxed Heart Rate FHR Baseline Rate: 135 Monitor Mode: External US FHR Baseline Changes: No Baseline Change Variability: Moderate 6-25 bpm Accelerations: 15X15 Decelerations: None Category: Category I Datetime: 09/09/2018 02:00 Labor Evaluation Frequency: none Monitor Mode: External Quality: Mild Pattern: Normal: <= 5 Contractions in 10 Minutes Resting Tone [place]re[place]: Relaxed Heart Rate FHR Baseline Rate: 135 Monitor Mode: External US FHR Baseline Changes: No Baseline Change Variability: Moderate 6-25 bpm Accelerations: 15X15 Decelerations: None Category: Category I Datetime: 09/08/2018 23:10 Fall Score: 20 Fall Risk Score Definition: No Risk: No action required Datetime: 09/08/2018 17:17 Fall Score: 0 Fall Risk Score Definition: No Risk: No action required Datetime: 09/08/2018 17:12 EGA: 35.0
--- NOTE | 2018-09-27 09:53 | PN ---
Triage Information Date/Time September 26, 2018 Reason for visit: Uterine contractions Weeks of Gestation 37 weeks and 4 days /Para 2 para 0 Diabetes: none Hypertention: none Additional information 27-year-old G2, P0 with IUP at 37 weeks and 4 days with care with Dr. Oren Duvall, presented with complaint of contractions. She denies any leaking of fluid, vaginal bleeding or decreased movement. Denies any complication during her course. Objective Vital Signs Date Temp Pulse Resp B/P (MAP) Pulse Ox O2 O2 Flow FiO2 Time Delivery Rate 09/26/18 98.7 114 20 92/53 (66) Room Air 20:24 Heart Rate: 130's Heart Rate Comments Category 1 and appropriate for gestational age Contractions: 6-10 Minutes Apart Exam General appearance: Alert and oriented x4 does not appear to be in acute distress Abdomen: Soft, gravid, fundal height consider gestational age NST: Category 1 Contractions q. 5 to 8 minutes apart SVE: Closed/thick/long No cervical change noted during observation after hydration in triage Normal amniotic fluid Results/Medications Imaging Results PROCEDURE: Limited OB ultrasound CLINICAL INDICATION: Contractions. . Evaluate fluid volume. TECHNIQUE: Sonographic evaluation to assess the amniotic fluid volume was performed. Transabdominal imaging of the gravid uterus was performed. COMPARISON: None . FINDINGS: There is a single live intrauterine gestation. heart rate is 140 beats per minute. The position is cephalic. The placenta is anterior, grade 2. The JM is 18.8 cm. IMPRESSION: 1. Amniotic fluid volume equals 18.8 cm. RPTAT: HFN Disposition: Discharge Assessment/Plan IUP 37 weeks and 4 days False labor pain testing reassuring Patient observed in triage for 2 hours then no cervical change noted Discharged home in stable condition Strict labor precautions kick count and follow-up with primary OB office within 2 days after discharge from the hospital discussed with patient Patient verbalized understanding. All questions answered to the patient's best satisfaction. VIANEY ROMERO MD September 27, 2018 09:53
== END 2018-09-26 23:35 | disposition home or self-care (01) ==
LOC: OBT 20:13 → L-D 20:15 → OBT 23:35
PROVIDERS: ATTEND Obstetrics & Gynecology
DX: O47.1 False labor at or after 37 completed weeks of gestation (principal); Z3A.37 37 weeks gestation of pregnancy
CPT/HCPCS: 76815; Z7500; G0463

== ENCOUNTER 2018-09-29 20:31 | Outpatient (CLI) | payer OTHER ==
[~2018-09-29] VITALS: Ht 170.2 cm; Wt 88.2 kg
[~2018-09-29 20:31] MED LIST: CALC600T24 PO; DOXY1TAB3 PO; FOLI-49 PO; PREN-93 PO
[2018-09-29 20:48] VITALS: BP 96/59; PULSE 114; RESP 18; Ht 170.2 cm; Wt 88.2 kg
[2018-09-29] MEDS ORDERED: FAMO10TA84 PO (21:07)
[2018-09-30] MEDS ORDERED: LACTATED RINGER'S 1,000 ML IV ONE (00:30)
[2018-09-30] MEDS ORDERED: TERBUTALINE 1 MG/ML INJ SC ONE (00:30)
[2018-09-30] MEDS ORDERED: LACTATED RINGER'S 1,000 ML IV SCH (01:30)
--- NOTE | 2018-09-30 05:08 | TRIAGE ---
OB Triage Datetime Report Generated by CPN: 09/30/2018 05:07 Datetime: 09/30/2018 00:41 Labor Evaluation Frequency: occasional Monitor Mode: External Quality: Mild Resting Tone Andrew: Relaxed Heart Rate FHR Baseline Rate: 125 Monitor Mode: External US Variability: Moderate 6-25 bpm Accelerations: 15X15 Decelerations: None Category: Category I Datetime: 09/30/2018 00:10 Labor Evaluation Frequency: irregular Monitor Mode: External Quality: Mild Resting Tone Andrew: Relaxed Heart Rate FHR Baseline Rate: 135 Monitor Mode: External US Variability: Moderate 6-25 bpm Accelerations: 15X15 Decelerations: None Category: Category I Datetime: 09/29/2018 23:10 Labor Evaluation Frequency: irregular Monitor Mode: External Duration (sec)2399: 40-60 Quality: Mild Resting Tone Andrew: Relaxed Heart Rate FHR Baseline Rate: 135 Monitor Mode: External US Variability: Moderate 6-25 bpm Accelerations: 15X15 Decelerations: None Category: Category I Datetime: 09/29/2018 22:10 Labor Evaluation Frequency: 1-6 Monitor Mode: External Duration (sec)2399: 40-80 Quality: Mild Resting Tone Andrew: Relaxed Heart Rate FHR Baseline Rate: 130 Monitor Mode: External US Variability: Moderate 6-25 bpm Accelerations: 15X15 Decelerations: None Category: Category I Pain Assessment Pain Scale: 5 Pain Presence: Intermittent Pain Type: Contraction Pain Location: Abdomen Pain Relief Measures: Comfort Measures Datetime: 09/29/2018 21:50 Pain Assessment Pain Scale: 6 Pain Presence: Intermittent Pain Type: Sharp; Contraction; Pressure; Ache Pain Location: Abdomen; Right Groin; Left Groin Pain Relief Measures: Comfort Measures Pain Assessment Comments: pt states she is still having pelvic pain and is now feeling her contract ions more Datetime: 09/29/2018 21:37 Comments: Monitors temporarily removed, proced tech at bedside performing ultrasound exam Datetime: 09/29/2018 21:10 Vaginal Exam Dilatation (cms): 0.0 Effacement (%): 0 Station: -3 Exam By: CLARI CHRISTIANSON Membrane Status: Intact Vaginal Bleeding: None Cervix, Consistency: Firm Cervix, Position: Midposition Datetime: 09/29/2018 21:08 Labor Evaluation Frequency: 1-6 Monitor Mode: External Duration (sec)2399: 40-90 Quality: Mild Pattern: Normal: <= 5 Contractions in 10 Minutes Resting Tone Andrew: Relaxed Heart Rate FHR Baseline Rate: 130 Monitor Mode: External US Variability: Minimal - Undetectable to <=5 bpm Accelerations: None Decelerations: None Category: Category II Datetime: 09/29/2018 20:48 Assessment Type: Triage Time of Arrival: 09/29/2018 20:25 EGA: 38.0 Arrived By: Ambulatory Arrived From: Home Chief Complaint: PELVIC PAIN _ IRREGULAR UC'S SINCE LAST NIGHT; DFM, HEADACHE Movement: Decreased Contractions: Irregular Rupture of Membranes: Denies Vaginal Bleeding: None Vaginal Discharge: Denies Recent Sexual Intercouse: Denies Abdominal Trauma: Not Applicable Patient Complaints: Headache; Nausea; Other Additional Patient Complaints: SLIGHT N/V Time Provider Notified: 09/29/2018 20:39 Provider Notified: KIM Initial Plan: VS, EFM, SVE CALL OB BPP W/JM; UA Maternal Assessment Level of Consciousness: Fully Conscious DTR's/Clonus: DTRs 2+; No Clonus Headache: Occipital; Frontal Blurred Vision: No Respiratory Effort: Unlabored; Regular Rhythm; Equal Expansion Breath Sounds, Left: Clear and Equal Breath Sounds, Right: Clear and Equal Nausea/Vomiting: Hx of Nausea/Vomiting RUQ Epigastric Pain: Denies Lower Extremities Edema: None Degree: None Upper Extremities Edema: None Degree: None Facial Edema: None Temperature Route: Oral Fall Risk Assessment History of Falling: (0) No Secondary Diagnosis: (0) No Ambulatory Aid: (0) Bedrest/Nurse Assist IV Therapy: (0) No Gait: (0) Normal/Bedrest/Immobile Mental Status: (0) Oriented to Own Ability Fall Score: 0 Fall Risk Score Definition: No Risk: No action required Pain Assessment Pain Scale: 5 Pain Presence: Constant Pain Type: Sharp; Ache Pain Location: Right Groin; Left Groin Pain Relief Measures: Comfort Measures Pain Assessment Comments: pelvic pain Datetime: 09/29/2018 20:46 Monitor Mode: External Monitor Mode: External US Comments: Monitors applied, FHT audible at 145bpm Datetime: 09/29/2018 20:31 Stage of : OB Triage Datetime: 09/26/2018 20:25 EGA: 37.4 Datetime: 09/26/2018 20:24 Fall Score: 0 Fall Risk Score Definition: No Risk: No action required Datetime: 09/26/2018 20:16 EGA: 35.0 Datetime: 09/12/2018 07:53 Fall Score: 20 Fall Risk Score Definition: No Risk: No action required Datetime: 09/11/2018 19:58 Fall Score: 0 Fall Risk Score Definition: No Risk: No action required Datetime: 09/09/2018 20:02 Fall Score: 20 Fall Risk Score Definition: No Risk: No action required Datetime: 09/09/2018 08:00 Fall Score: 20 Fall Risk Score Definition: No Risk: No action required Datetime: 09/08/2018 23:10 Fall Score: 20 Fall Risk Score Definition: No Risk: No action required Datetime: 09/08/2018 17:17 Fall Score: 0 Fall Risk Score Definition: No Risk: No action required Datetime: 09/08/2018 17:12 EGA: 35.0
--- NOTE | 2018-09-30 12:04 | PN ---
Triage Information Date/Time Reason for visit: DFM Weeks of Gestation 27-year-old 3 para 0 at 38 weeks and 1 day of gestation with estimated date of delivery October 13, 2018 Patient presents with chief complaint of decreased movement and pelvic pain She denies any vaginal bleeding or leaking fluid /Para 3 para 0 Diabetes: none Hypertention: none Objective Vital Signs Date Temp Pulse Resp B/P (MAP) Pulse Ox O2 O2 Flow FiO2 Time Delivery Rate 09/29/18 98.2 114 18 96/59 (71) Room Air 20:48 Heart Rate: 140's Heart Rate Comments heart rate tracing category 1 Contractions: 6-10 Minutes Apart Exam Cervix closed per nurse Results/Medications Results 24 hrs Laboratory Tests Test 09/29/18 20:30 Urine Color STRAW Urine Clarity SLIGHTLY CLOUDY A Urine pH 6.0 Urine Specific Scott 1.008 Urine Ketones NEGATIVE Urine Nitrite NEGATIVE Urine Bilirubin NEGATIVE Urine Urobilinogen NEGATIVE Urine Leukocyte Esterase NEGATIVE Urine Microscopic RBC 0 Urine Microscopic WBC 0 Urine Squamous Epithelial Cells MODERATE Urine Bacteria FEW A Urine Hemoglobin NEGATIVE Urine Glucose NEGATIVE Urine Total Protein NEGATIVE Imaging Results PROCEDURE: US OB biophysical profile. CLINICAL INDICATION: CONTRACTIONS, decreased movement TECHNIQUE: Multiple sonographic images of the pelvis were obtained. The images were reviewed on a PACS workstation. COMPARISON: 09/26/2018 FINDINGS: There is a live intrauterine gestation. There is a normal amount of amniotic fluid with an JM = 17.6 cm. Cardiac activity is present with 130 beats per minute. There is a vertex presentation. The placenta is anterior. Biophysical profile: movement 2/2 tone 2/2. breathing 2/2 JM 2/2 Total 12/27 IMPRESSION: Normal biophysical profile. RPTAT:HCLE Physician Ester Date Time Electronically viewed and signed by Physician Ester on 09/29/2018 22:37 cE/ CC: JORJE ALVAREZ MD [phone] Disposition: Discharge Assessment/Plan After observation here in triage patient reports that she is feeling movement She was instructed to increase fluid intake kick count instructions were given Labor precautions were given Patient instructed to return in 48 hours for repeat BPP JORJE SIMON MD September 30, 2018 12:04
== END 2018-09-30 01:20 | disposition home or self-care (01) ==
LOC: OBT 20:31 → L-D 20:31 → OBT 09-30 01:20
PROVIDERS: ATTEND Obstetrics & Gynecology
DX: O36.8130 Decreased fetal movements, third trimester, not applicable or unspecified (principal); Z3A.38 38 weeks gestation of pregnancy
CPT/HCPCS: 76818; 81001; J7120; Z7500; 81003; G0463; J3105

== ENCOUNTER 2018-10-02 11:44 | Outpatient (CLI) | payer OTHER ==
[~2018-10-02] VITALS: Ht 170.2 cm; Wt 88.4 kg
[~2018-10-02 11:44] MED LIST changes: +FAMO10TA84 PO
[2018-10-02 12:08] VITALS: Ht 170.2 cm; Wt 88.4 kg
[2018-10-02] MEDS ORDERED: PREN-93 PO (13:10)
--- NOTE | 2018-10-02 13:20 | TRIAGE ---
OB Triage Datetime Report Generated by CPN: 10/02/2018 13:19 Datetime: 10/02/2018 12:13 Stage of : OB Triage Vaginal Exam Dilatation (cms): 0.0 Effacement (%): 0 Station: 0 Exam By: RRAMIREZ,RN Datetime: 10/02/2018 11:49 Assessment Type: Triage Maternal Assessment Level of Consciousness: Fully Conscious DTR's/Clonus: DTRs 2+; No Clonus Headache: Denies Blurred Vision: No Respiratory Effort: Unlabored; Regular Rhythm; Equal Expansion Breath Sounds, Left: Clear and Equal Breath Sounds, Right: Clear and Equal Nausea/Vomiting: Denies RUQ Epigastric Pain: Denies Lower Extremities Edema: None Degree: None Upper Extremities Edema: None Degree: None Facial Edema: None Fall Risk Assessment History of Falling: (0) No Secondary Diagnosis: (0) No Ambulatory Aid: (0) Bedrest/Nurse Assist IV Therapy: (0) No Gait: (0) Normal/Bedrest/Immobile Mental Status: (0) Oriented to Own Ability Fall Score: 0 Fall Risk Score Definition: No Risk: No action required Datetime: 10/02/2018 11:40 Time of Arrival: 10/02/2018 11:40 EGA: 38.3 Arrived By: Wheelchair Arrived From: Home Chief Complaint: PT CAME IN FROM HOME C/O UC'S Movement: Present Contractions: Denies/Absent Rupture of Membranes: Denies Vaginal Discharge: Denies Recent Sexual Intercouse: Denies Abdominal Trauma: Not Applicable Additional Patient Complaints: NONE Time Provider Notified: 10/02/2018 11:50 Provider Notified: ESHAGHIAN Initial Plan: NST, BPP Datetime: 09/29/2018 20:48 EGA: 38.0 Fall Score: 0 Fall Risk Score Definition: No Risk: No action required Datetime: 09/26/2018 20:25 EGA: 37.4 Datetime: 09/26/2018 20:24 Fall Score: 0 Fall Risk Score Definition: No Risk: No action required Datetime: 09/26/2018 20:16 EGA: 35.0 Datetime: 09/12/2018 07:53 Fall Score: 20 Fall Risk Score Definition: No Risk: No action required Datetime: 09/11/2018 19:58 Fall Score: 0 Fall Risk Score Definition: No Risk: No action required Datetime: 09/09/2018 20:02 Fall Score: 20 Fall Risk Score Definition: No Risk: No action required Datetime: 09/09/2018 08:00 Fall Score: 20 Fall Risk Score Definition: No Risk: No action required Datetime: 09/08/2018 23:10 Fall Score: 20 Fall Risk Score Definition: No Risk: No action required Datetime: 09/08/2018 17:17 Fall Score: 0 Fall Risk Score Definition: No Risk: No action required Datetime: 09/08/2018 17:12 EGA: 35.0
--- NOTE | 2018-10-02 14:04 | PN ---
Triage Information Date/Time Reason for visit: Uterine contractions Weeks of Gestation 38+ /Para n/a Diabetes: none Hypertention: none Objective Heart Rate: 140's Contractions: >10 Minutes Apart Disposition: Discharge Assessment/Plan BPP 02/28 Cx closed -->Discharged with precautions -->Questions answered -->Follow up with provider ADONAY BORRERO M.D. October 02, 2018 14:04
== END 2018-10-02 13:30 | disposition home or self-care (01) ==
LOC: OBT 11:44 → L-D 11:45 → OBT 13:30
PROVIDERS: ATTEND Obstetrics & Gynecology
DX: O62.9 Abnormality of forces of labor, unspecified (principal); Z3A.38 38 weeks gestation of pregnancy
CPT/HCPCS: 76818; Z7500; G0463

== ENCOUNTER 2018-10-10 10:28 | Inpatient (IN) | payer OTHER ==
[~2018-10-10] VITALS: Ht 170.2 cm; Wt 89.7 kg
[2018-10-10 10:45] VITALS: BP 118/73; PULSE 100; RESP 18; Ht 170.2 cm; Wt 89.7 kg
[2018-10-10] MEDS ORDERED: LIDOCAINE 1% (MPF) 30 ML INJ INJ PRN (13:00)
[2018-10-10] MEDS ORDERED: IBUPROFEN 600 MG TAB PO PRN (13:00)
[2018-10-10] MEDS ORDERED: OXYTOCIN 30 UNITS/LR 500 ML IV SCH ×3 (13:00)
[2018-10-10] MEDS ORDERED: METHYLERGONOVINE 0.2 MG INJ IM PRN (13:00)
[2018-10-10] MEDS ORDERED: CARBOPROST 250 MCG INJ IM PRN (13:00)
[2018-10-10] MEDS ORDERED: BUTORPHANOL 2 MG INJ IV PRN (13:00)
[2018-10-10] MEDS ORDERED: OXYTOCIN 30 UNITS/LR 500 ML IV PRN (13:00)
[2018-10-10] MEDS ORDERED: MISOPROSTOL 200 MCG TAB PR PRN (13:00)
[2018-10-10] MEDS: LACTATED RINGER'S 1,000 ML IV SCH ×2 (13:24→22:53)
--- NOTE | 2018-10-10 13:24 | PREOPHP ---
DATE OF ADMISSION: 10/10/2018 HISTORY OF PRESENT ILLNESS: Ms. Santa Fletcher is a 27-year-old 2, para 0, EDC of 9, intrauterine at 39 weeks' gestational age, presented to triage, complaining of vaginal l eaking since early this morning with positive contractions. She was seen and evaluated and grossly r uptured. There is no active vaginal bleeding. Her care took place at [facility]. PAST MEDICAL HISTORY: None. MEDICATIONS: vitamins. PAST SURGICAL HISTORY: None. OBSTETRICAL HISTORY: x1 termination of . GYNECOLOGIC HISTORY: 11, regular 3 to 4 days. Denies any sexually transmitted infections. Sexually active with 1 partner. SOCIAL HISTORY: Denies any smoking, drugs or alcohol. FAMILY HISTORY: None. REVIEW OF SYSTEMS: All within normal except history of present illness. PHYSICAL EXAMINATION: HEENT: Within normal. LUNGS: CTA bilateral. CARDIOVASCULAR: S1, S2. Regular rate and rhythm. ABDOMEN: Gravid, nontender. Negative CVA bilateral. EXTREMITIES: Negative calf tenderness. PELVIC: Vaginal: Fingertip short and closed. ASSESSMENT: Intrauterine at 39 weeks and 4 days gestational age with premature rupture of membrane/early labor. Admit patient for induction. Risks, benefits and alternatives were explained. All questions were answered. Consider group B streptococcal sepsis prophylaxis if group B streptoc occal sepsis is positive. Dictated By: BRITTANY CORLEY/GAGAN Conf#: [id number] DID#: [id number]
--- NOTE | 2018-10-10 22:18 | PREAC ---
Date/Time of Note Date/Time of Note DATE: 10/10/18 TIME: 22:17 Anesthesia Eval and Record Evaluation Time Pre-Procedure Interview DATE: 10/10/18 TIME: 22:17 Age 27 Sex female NPO: Other Preoperative diagnosis labor pain Planned procedure epidural Past Medical History Past Medical History: None Surgery & Anesthesia Issues No known issue Meds Anticoagulation: No Beta Jatin within 24 hr: No Reason Beta Jatin not given: Pt. not on B-Jatin Reported Medications Vit No.124/Iron/FA ( Vitamin Tablet) 1 Each Tablet, 1 EACH PO, TAB 10/02/18 Famotidine* (Famotidine*) 10 Mg Tablet, 10 MG PO BID, #60 TAB 09/29/18 Doxylamine/Pyridoxine Hcl (DICLEGIS DR 10-10 MG TABLET) 1 Each Tablet.dr, 1 TAB PO, TAB 09/26/18 Calcium Carbonate* (Calcium Carbonate*) 600 MG Ca Tab, 600 MG PO, TAB 09/26/18 Folic Acid* (Folic Acid*) 1 Mg Tablet, 1 MG PO DAILY, TAB 09/26/18 Vit No.124/Iron/FA ( Vitamin Tablet) 1 Each Tablet, 1 EACH PO, TAB 09/26/18 Current Medications Butorphanol Tartrate (Stadol) 2 mg Q2H PRN IV .PAIN SCALE 6-10; Start 10/10/18 at 13:00 Lidocaine (Xylocaine 1% (Mpf)) 30 ml ONCE PRN INJ .EPISIOTOMY; Start 10/10/18 at 13:00 Oxytocin/Lactated Ringer's 500 ml @ 500 mls/hr ONCE POST IV ; Start 10/10/18 at 13:00 Oxytocin/Lactated Ringer's 500 ml @ 125 mls/hr POST IV ; Start 10/10/18 at 13:00 Ibuprofen (Motrin) 600 mg ONCE PRN PO .PAIN 1-5; Start 10/10/18 at 13:00 Oxytocin/Lactated Ringer's 500 ml @ 0 mls/hr ONCE PRN IV .VAGINAL BLEEDING; Start 10/10/18 at 13:00 Methylergonovine Maleate (Methergine) 0.2 mg ONCE PRN IM .VAGINAL BLEEDING; Start 10/10/18 at 13:00 Carboprost Tromethamine (Hemabate) 250 mcg ONCE PRN IM .VAGINAL BLEEDING; Start 10/10/18 at 13:00 Misoprostol (Cytotec) 1,000 mcg ONCE PRN SC .VAGINAL BLEEDING; Start 10/10/18 at 13:00 Oxytocin/Lactated Ringer's 500 ml @ 0 mls/hr FOR INDUCTION IV Last administered on 10/10/18at 19:01; Admin Dose 1 MLS/HR; Start 10/10/18 at 13:00 Lactated Ringer's 1,000 ml @ 125 mls/hr Q8H IV Last administered on 10/10/18at 13:24; Admin Dose 125 MLS/HR; Start 10/10/18 at 13:00 Meds reviewed: Yes Allergies Coded Allergies: venlafaxine (Verified Allergy, Severe, Hallucinations, 10/02/18) Allergies Reviewed: Yes Labs/Studies Labs Reviewed: Reviewed by anesthesiologist Result Diagram: 10/10/18 1300 Laboratory Tests 10/10/18 13:00 Blood Bank Test 10/10/18 14:33 Antibody Screen NEGATIVE Blood Type O POSITIVE Rh Immune Globulin Candidate NO test: N/A Pre-procedure Exam Last vitals Vital Signs Date Temp Pulse Resp B/P (MAP) Pulse Ox O2 O2 Flow FiO2 Time Delivery Rate 10/10/18 97.7 100 18 118/73 Room Air 10:45 (88) Airway: Adequate mouth opening, Adequate thyromental dist Mallampati: Mallampati IV Teeth: Normal Lung: Normal Heart: Normal ASA Physical Status ASA physical status: 2 Emergency: None Pre-operative Attestations Prior to commencing anesthesia and surgery, the patient was re-evaluated, there was verification of: *The patient's identity *The results of appropriate recent lab work and preoperative vital signs *The above evaluation not changing prior to induction *Anesthetic plan, risk benefits, alternative and complications discussed with patient/family; questions answered; patient/family understands, accepts and wishes to proceed. MARGARET HINTON DO October 10, 2018 22:18
[2018-10-10] MEDS ORDERED: DIPHENHYDRAMINE 50 MG INJ IV PRN (22:30)
[2018-10-10] MEDS ORDERED: ONDANSETRON 4 MG INJ IV PRN (22:30)
[2018-10-10] MEDS ORDERED: NALOXONE (0.4 MG/ML) INJ IV PRN (22:30)
[2018-10-10] MEDS ORDERED: ZOLPIDEM 5 MG TAB PO PRN (22:30)
[2018-10-10] MEDS ORDERED: FENTAnyl 50 MCG/ML VIAL ONE (22:46)
--- NOTE | 2018-10-10 23:14 | PAC ---
Date/Time of Note Date/Time of Note DATE: 10/10/18 TIME: 23:13 Post-Anesthesia Notes Post-Anesthesia Note Last documented vital signs Vital Signs Date Temp Pulse Resp B/P (MAP) Pulse Ox O2 O2 Flow FiO2 Time Delivery Rate 10/10/18 98 85 18 112/75 100 Room Air 2311 Activity: WNL Respiratory function: WNL Cardiovascular function: WNL Mental status: Baseline Pain reasonably controlled: Yes Hydration appropriate: Yes Nausea/Vomiting absent: Yes MARGARET HINTON DO October 10, 2018 23:14
[2018-10-11] MEDS ORDERED: ACETAMINOPHEN 325 MG TAB PO PRN (02:00)
[2018-10-11] MEDS: FENTAnyl 2MCG/ML-ROPIV 0.2% 100 ML BAG EPI SCH ×3 (04:15→17:03)
--- NOTE | 2018-10-11 08:28 | QN ---
Documentation Comment patient seen and evaluated no complaints vs stable afebrile ab gravid nt extremity no edema no calf tenderness fhr cat 1 toco regular Intrauterine at 39 weeks and 5 days gestational age with premature rupture of membrane. currently on pitocin for induction p/ continue present treatment start antibiotics for prolong rupture of membrane BRITTANY MENDEZ MD October 11, 2018 08:28
[2018-10-11] MEDS ORDERED: AMPICILLIN 2 GM/NS (PMX) 100 ML IVPB ONE (08:30)
[2018-10-11] MEDS: LACTATED RINGER'S 1,000 ML IV SCH ×3 (08:39→18:58)
[2018-10-11] MEDS: AMPICILLIN 1 GM/NS (PMX) 50 ML IVPB SCH ×3 (12:51→21:00)
[2018-10-11] MEDS ORDERED: CEFAZOLIN 2 GM/50 ML (PMX) 50 ML IVPB SCH (18:30)
--- NOTE | 2018-10-11 18:41 | HPN ---
Date/Time of Note Date/Time of Note DATE: 10/11/18 TIME: 18:40 Interval H&P Admission Note Pt. seen H&P reviewed: Systems changes noted below Intrauterine at 39 weeks and 4 days gestational age with premature rupture of membrane/early labor, positive meconium, decline to continue induction. Desire CD, r/b/a explained BRITTANY MENDEZ MD October 11, 2018 18:41
--- NOTE | 2018-10-11 18:48 | PREAC ---
Date/Time of Note Date/Time of Note DATE: 10/11/18 TIME: 18:47 Anesthesia Eval and Record Evaluation Time Pre-Procedure Interview DATE: 10/11/18 TIME: 18:47 Age 27 Sex female NPO: 8 hrs Preoperative diagnosis failure to progress Planned procedure csection Past Medical History Past Medical History: Includes : Gestational age: (39) Surgery & Anesthesia Issues No known issue Meds Anticoagulation: No Beta Jatin within 24 hr: No Reason Beta Jatin not given: Pt. not on B-Jatin Reported Medications Vit No.124/Iron/FA ( Vitamin Tablet) 1 Each Tablet, 1 EACH PO, TAB 10/02/18 Famotidine* (Famotidine*) 10 Mg Tablet, 10 MG PO BID, #60 TAB 09/29/18 Doxylamine/Pyridoxine Hcl (DICLEGIS DR 10-10 MG TABLET) 1 Each Tablet.dr, 1 TAB PO, TAB 09/26/18 Calcium Carbonate* (Calcium Carbonate*) 600 MG Ca Tab, 600 MG PO, TAB 09/26/18 Folic Acid* (Folic Acid*) 1 Mg Tablet, 1 MG PO DAILY, TAB 09/26/18 Vit No.124/Iron/FA ( Vitamin Tablet) 1 Each Tablet, 1 EACH PO, TAB 09/26/18 Current Medications Butorphanol Tartrate (Stadol) 2 mg Q2H PRN IV .PAIN SCALE 6-10; Start 10/10/18 at 13:00 Lidocaine (Xylocaine 1% (Mpf)) 30 ml ONCE PRN INJ .EPISIOTOMY; Start 10/10/18 at 13:00 Oxytocin/Lactated Ringer's 500 ml @ 500 mls/hr ONCE POST IV ; Start 10/10/18 at 13:00 Oxytocin/Lactated Ringer's 500 ml @ 125 mls/hr POST IV ; Start 10/10/18 at 13:00 Ibuprofen (Motrin) 600 mg ONCE PRN PO .PAIN 1-5; Start 10/10/18 at 13:00 Oxytocin/Lactated Ringer's 500 ml @ 0 mls/hr ONCE PRN IV .VAGINAL BLEEDING; Start 10/10/18 at 13:00 Methylergonovine Maleate (Methergine) 0.2 mg ONCE PRN IM .VAGINAL BLEEDING; Start 10/10/18 at 13:00 Carboprost Tromethamine (Hemabate) 250 mcg ONCE PRN IM .VAGINAL BLEEDING; Start 10/10/18 at 13:00 Misoprostol (Cytotec) 1,000 mcg ONCE PRN [place] .VAGINAL BLEEDING; Start 10/10/18 at 13:00 Oxytocin/Lactated Ringer's 500 ml @ 0 mls/hr FOR INDUCTION IV Last administered on 10/10/18 19:01; Admin Dose 1 MLS/HR; Start 10/10/18 at 13:00 Lactated Ringer's 1,000 ml @ 125 mls/hr Q8H IV Last administered on 10/11/18 11:02; Admin Dose 125 MLS/HR; Start 10/10/18 at 13:00 Diphenhydramine HCl (Benadryl) 25 mg Q4H PRN IV .PRURITUS; Start 10/10/18 at 2 2:30 Ondansetron HCl (Zofran Inj) 4 mg Q6H PRN IV .NAUSEA/VOMITING Last administered on 10/11/18 12:22; Admin Dose 4 MG; Start 10/10/18 at 22:30 Zolpidem Tartrate (Ambien) 5 mg HS MAY REPEAT X 1 PRN PO .INSOMNIA; Start 10/10/18 at 22:30 Naloxone HCl (Narcan) 0.2 mg Q2M PRN IV .RESP RATE; Start 10/10/18 at 22:30 Fentanyl/ Ropivacaine 100 ml EPIDURAL (PCEA) EPI Last administered on 10/11/18 17:03; Admin Dose 100 ML; Start 10/10/18 at 22:30 Acetaminophen (Tylenol Tab) 650 mg Q4H PRN PO MILD PAIN(1-3)OR ELEVATED TEMP Last administered on 10/11/18at 04:01; Admin Dose 650 MG; Start 10/11/18 at 02:00 Ampicillin 50 ml @ 100 mls/hr Q4 IVPB Last administered on 10/11/18 17:18; Admin Dose 100 MLS/HR; Start 10/11/18 at 13:00 Cefazolin Sodium/ Dextrose 50 ml @ 100 mls/hr ONCE IVPB ; Start 10/11/18 at 18:30 Azithromycin 250 ml @ 250 mls/hr ONCE IV ; Start 10/11/18 at 19:00; Status UNV Meds reviewed: Yes Allergies Coded Allergies: venlafaxine (Verified Allergy, Severe, Hallucinations, 10/02/18) Allergies Reviewed: Yes Labs/Studies Labs Reviewed: Reviewed by anesthesiologist Result Diagram: 10/10/18 1300 test: Positive Studies: ECG (n/a), CXR (n/a) Pre-procedure Exam Last vitals Vital Signs Date Temp Pulse Resp B/P (MAP) Pulse Ox O2 O2 Flow FiO2 Time Delivery Rate 10/10/18 97.7 100 18 118/73 Room Air 10:45 (88) Airway: Adequate mouth opening Mallampati: Mallampati I Teeth: Normal Lung: Normal Heart: Normal ASA Physical Status ASA physical status: 2 Emergency: None Planned Anesthetic Neuraxial: Epidural Planned Pain Management Epidural Pre-operative Attestations Prior to commencing anesthesia and surgery, the patient was re-evaluated, there was verification of: *The patient's identity *The results of appropriate recent lab work and preoperative vital signs *The above evaluation not changing prior to induction *Anesthetic plan, risk benefits, alternative and complications discussed with patient/family; questions answered; patient/family understands, accepts and wishes to proceed. PIETER BLANCO MD October 11, 2018 18:48
[2018-10-11] MEDS ORDERED: AZITHROMYCIN 500MG/NS (PMX) 250 ML IV SCH (19:00)
[2018-10-11] MEDS ORDERED: METOCLOPRAMIDE 10 MG INJ ONE (20:07)
[2018-10-11] MEDS ORDERED: KETOROLAC 30 MG INJ ONE (20:07)
[2018-10-11] MEDS ORDERED: LIDOCAINE 1.5%/EPI MPF (SDV) 30 ML VIAL ONE (20:07)
[2018-10-11] MEDS ORDERED: morphine SULFATE/PF (10 MG/10 ML) INJ ONE (20:12)
[2018-10-11] MEDS ORDERED: PHENYLephrine (100 MCG/ML) 10ML SYG ONE (20:17)
[2018-10-11] MEDS ORDERED: OXYTOCIN 30 UNITS/LR 500 ML IV ONE (20:55)
[2018-10-11] MEDS ORDERED: OXYTOCIN 30 UNITS/LR 500 ML IV SCH (20:58)
--- NOTE | 2018-10-11 20:58 | OPPN ---
Date/Time of Note Date/Time of Note DATE: 10/11/18 TIME: 20:55 Operative Report Planned Procedure Procedure date October 11, 2018 Procedure(s) primary low transverse CD Performed by see signature line Research Coordinator: RAVINDRA JULIEN MD 2nd Research Coordinator none Anesthesiologist: PIETER BLANCO MD Pre-procedure diagnosis Intrauterine at 39 weeks and 4 days gestational age with premature rupture of membrane/early labor, positive meconium, decline to continue induction. Desire CD [id number] Anesthesia Type: [id number] epidural Post-Procedure Post-procedure diagnosis Intrauterine at 39 weeks and 4 days gestational age with premature rupture of membrane/early labor, positive meconium, decline to continue induction. Desire CD Findings a viable male 9/9 weight 8lb 9oz. OP presentation. normal uterus tubes and ovaries Estimated Blood Loss: 500 - 600 mls Specimen(s) none Grafts/Implant(s) none Complication(s) none BRITTANY MENDEZ MD October 11, 2018 20:58
[2018-10-11] MEDS ORDERED: LANOLIN HPA 1 PKT TOP PRN (21:00)
[2018-10-11] MEDS ORDERED: CARBOPROST 250 MCG INJ IM PRN (21:00)
[2018-10-11] MEDS ORDERED: OXYTOCIN 30 UNITS/LR 500 ML IV PRN (21:00)
[2018-10-11] MEDS ORDERED: MISOPROSTOL 200 MCG TAB PR PRN (21:00)
[2018-10-11] MEDS ORDERED: OXYCODONE/ACETAMINOPHEN (5/325) TAB PO PRN (21:00)
[2018-10-11] MEDS ORDERED: METHYLERGONOVINE 0.2 MG INJ IM PRN (21:00)
[2018-10-11] MEDS ORDERED: NACL 0.9% 3 ML SYG IV SCH (21:00)
[2018-10-11] MEDS: IBUPROFEN 800 MG TAB PO SCH (22:00)
[2018-10-11] MEDS ORDERED: ONDANSETRON 4 MG INJ IV PRN ×2 (22:30)
[2018-10-11] MEDS ORDERED: DIPHENHYDRAMINE 50 MG INJ IV PRN ×2 (22:30)
[2018-10-11] MEDS ORDERED: morphine 2 MG INJ IV PRN ×5 (22:30)
[2018-10-11] MEDS ORDERED: NALOXONE (0.4 MG/ML) INJ IV PRN (22:30)
[2018-10-11] MEDS ORDERED: KETOROLAC 30 MG INJ IV PRN (22:30)
[2018-10-11] MEDS: KETOROLAC 30 MG INJ IV PRN (22:38)
[2018-10-11] MEDS: morphine 2 MG INJ IV PRN (23:30)
[2018-10-12] VITALS (7 sets, daily range): BP systolic 92–130; BP diastolic 49–78; PULSE 74–108; RESP 17–20
[2018-10-12] MEDS: LACTATED RINGER'S 1,000 ML IV SCH ×3 (02:03→21:00)
[2018-10-12] MEDS: CEFAZOLIN 2 GM/50 ML (PMX) 50 ML IVPB SCH ×3 (02:03→18:15)
[2018-10-12] MEDS: morphine 2 MG INJ IV PRN ×4 (03:04→17:06)
[2018-10-12] MEDS: KETOROLAC 30 MG INJ IV PRN ×3 (05:25→19:47)
[2018-10-12] MEDS: IBUPROFEN 800 MG TAB PO SCH ×3 (06:00→22:00)
--- NOTE | 2018-10-12 06:51 | PAC ---
Date/Time of Note Date/Time of Note DATE: 10/12/18 TIME: 06:51 Post-Anesthesia Notes Post-Anesthesia Note Last documented vital signs Vital Signs Date Temp Pulse Resp B/P (MAP) Pulse Ox O2 O2 Flow FiO2 Time Delivery Rate 10/12/18 98.1 108 17 96/ 95 Room Air 04:00 Activity: WNL Respiratory function: WNL Cardiovascular function: WNL Mental status: Baseline Pain reasonably controlled: Yes Hydration appropriate: Yes Nausea/Vomiting absent: No PIETER BLANCO MD October 12, 2018 06:51
--- NOTE | 2018-10-12 06:54 | OPPN ---
Date/Time of Note Date/Time of Note DATE: 10/12/18 TIME: 06:53 Anesthesia Follow up Anesthesia Follow up Last documented vital signs Vital Signs Date Temp Pulse Resp B/P (MAP) Pulse Ox O2 O2 Flow FiO2 Time Delivery Rate 10/12/18 98.1 108 17 96/ 95 Room Air 04:00 Respiratory function: WNL Cardiovascular function: WNL Comments a 28 year post duramorph for post op pain POD #1 is fine . No itchimg, N/V/ headache, .Pain is controlled PIETER BLANCO MD October 12, 2018 06:54
--- NOTE | 2018-10-12 11:00 | OPR ---
DATE OF OPERATION: 10/11/2018 PRIMARY DIAGNOSES: Intrauterine at term in labor, prolonged rupture of membrane, positive meconium, declined to continue induction, desires delivery. POSTOPERATIVE DIAGNOSES: Intrauterine at term in labor, prolonged rupture of membrane, pos itive meconium, declined to continue induction, desires delivery. PROCEDURE: Primary low transverse delivery. SURGEON: Oren Duvall MD COMPUTER NETWORKING INSTRUCTOR ADJUNCT: Dr. Hernandez ANESTHESIA: Epidural. COMPLICATIONS: None. ESTIMATED BLOOD LOSS: 500 mL. FINDINGS: A viable male, 9 and 9 respectively at 1 and 5 minutes, weight 8 pounds 9 ounces, in OP presentation. Normal uterus, tubes and ovaries. DESCRIPTION OF PROCEDURE: After explaining the risks, benefits and alternatives, the patient had con sent signed in chart, the patient was taken to the operating room where epidural anesthesia was found to be adequate. She was then prepared and draped in normal sterile fashion in dorsal supine positio n with a leftward tilt. A Pfannenstiel skin incision was then made with a scalpel and carried to the underlying layer of fascia. Fascia was incised in the midline and incision was extended laterally w ith Farnsworth scissors. The superior aspect of the fascial incision was grasped with curved clamps, eleva zenobia and the underlying rectus muscles dissected off bluntly. Attention was then turned to the inferi or aspect of the incision which in similar fashion was grasped, tented up with curved clamps and the rectus muscle dissected off bluntly. Rectus muscle was in midline, peritoneum identified a nd entered sharply with Metzenbaum scissors. The peritoneal incision was extended the bladder . At this point, the bladder blade was inserted and the lower uterine segment incised in transverse fashion with the scalpel. The uterine incision was extended laterally. The bladder blade was then r emoved and the 's head delivered atraumatically. The nose and mouth were suctioned and cord cl amped and cut. The placenta was then removed. The uterus was exteriorized and cleared of all clots and debris. The uterine incision was repaired with 1-0 chromic in a running locked fashion. A secon d layer of same suture was used for imbrication to obtain excellent hemostasis. The uterus was retur grey to the abdomen. The gutters were cleared of all clots. The peritoneum and rectus abdominis musc les were reapproximated with 3-0 Vicryl in interrupted fashion. The with 0 Vicryl in running f ashion. The subcutaneous tissue was reapproximated with 2-0 plain gut in a running fashion. The ski n was closed with absorbable yamini. The patient tolerated the procedure well. Sponge, lap and nee dle counts were correct. The patient was taken to recovery room in stable condition. Dictated By: OREN CORLEY/GAGAN Conf#: [id number] DID#: [id number]
[2018-10-12] MEDS ORDERED: CEFAZOLIN 2 GM/50 ML (PMX) 50 ML IVPB SCH (18:30)
--- NOTE | 2018-10-12 19:06 | QN ---
Documentation Comment progress note pod 1 patient seen and evaluated no complaints vs stable afebrile ab dressing clean/dry no distention extremity no edema no calf tenderness a/ sp cd pod 1 stable afebrile p/ iron supplement repeat cbc in am encourage ambulation BRITTANY MENDEZ MD October 12, 2018 19:06
[2018-10-12] MEDS: OXYCODONE/ACETAMINOPHEN (5/325) TAB PO PRN (21:29)
[2018-10-12] MEDS: FERROUS SULFATE (EC) 325 MG TAB PO SCH (21:30)
[2018-10-13] MEDS: OXYCODONE/ACETAMINOPHEN (5/325) TAB PO PRN ×6 (01:14→20:29)
[2018-10-13 03:36] VITALS: BP 96/54; PULSE 97; RESP 19
[2018-10-13] MEDS: LACTATED RINGER'S 1,000 ML IV SCH (05:00)
[2018-10-13] MEDS: IBUPROFEN 800 MG TAB PO SCH ×3 (05:13→21:53)
[2018-10-13 08:15] VITALS: BP 95/76; PULSE 86; RESP 18
[2018-10-13] MEDS: FERROUS SULFATE (EC) 325 MG TAB PO SCH ×2 (08:17→20:28)
--- NOTE | 2018-10-13 10:36 | QN ---
Documentation Comment progress note pod 2 patient seen and evaluated no complaints vs stable afebrile ab dressing clean/dry no distention extremity no edema no calf tenderness a/ sp cd pod 2 stable afebrile p/ discharge home tomorrow f/u office in 2 weeks BRITTANY MENDEZ MD October 13, 2018 10:36
--- NOTE | 2018-10-13 10:41 | PD.PPDC ---
HOSPITAL UNIT COORDINATOR Discharge Instruction Condition Akoki3Ah Patient Condition: [id number] Good Diet Tynei7Fb Diet: Fhnxx5i Resume Regular Diet Activity/Restrictions [id number] Activity: Fhdda6v Normal Activity May Shower [id number] Restrictions: Emhpa0n No Exercising No Lifting No Driving No Sexual Activity Nothing in the Vagina No Emporium No Tampons, douche Follow-up Follow-up with Physician: 2, Week/Weeks Return to clinic for [place]6Pu ETHNOGRAPHIC MATERIALS CONSERVATOR Instructions: [id number] Fever greater than 101 Chills Worsening abdominal pain Excessive Vaginal Bleeding More than 2 pads per hour Unable to tolerate diet [id number] OB Instructions: Drcug6v Breast Tenderness Depression Blurried Vision Headache [id number] Surgical Instructions: Jyluc3s Incisional Drainage Incisional Redness BRITTANY MENDEZ MD October 13, 2018 10:41
[2018-10-13 16:05] VITALS: BP 101/68; PULSE 91; RESP 19
[2018-10-14] MEDS: OXYCODONE/ACETAMINOPHEN (5/325) TAB PO PRN ×4 (01:07→15:00)
--- NOTE | 2018-10-14 02:38 | DS ---
DATE OF ADMISSION: 10/10/2018 DATE OF DISCHARGE: 10/14/2018 PRIMARY DIAGNOSES: 1. Intrauterine at term in labor. 2. Prolonged rupture of membrane. 3. Positive meconium. 4. Declined to continue induction. 5. Desires delivery. POSTOPERATIVE DIAGNOSES: 1. Intrauterine at term in labor. 2. Prolonged rupture of membrane. 3. Positive meconium. 4. Declined to continue induction. 5. Desires delivery. PROCEDURE: Primary low transverse delivery. CONDITION ON DISCHARGE: Stable. ACTIVITY: None per vagina, no lifting x6 weeks. DIET: Regular. MEDICATIONS ON DISCHARGE: 1. Motrin. 2. Iron. 3. Colace. DISCHARGE SUMMARY: Ms. Santa Fletcher underwent a primary delivery on 10/11/2018. She had a viable male, 9 and 9 respectively at 1 and 5 minutes, weight 8 pounds 9 ounces, in OP presen tation. She had an uneventful postop day 1, 2, and she was discharged home to postop day 3. Her inc ision is clean, dry, and intact. She is ambulating, tolerating diet, positive flatulence, positive b owel movement. She will follow up in the clinic in 2 weeks for /postop care. Dictated By: BRITTANY CORLEY/GAGAN Conf#: [id number] DID#: [id number]
[2018-10-14] MEDS: IBUPROFEN 800 MG TAB PO SCH ×2 (05:28→14:11)
[2018-10-14 08:40] VITALS: BP 98/56; PULSE 97; RESP 18
[2018-10-14] MEDS: FERROUS SULFATE (EC) 325 MG TAB PO SCH (10:28)
[2018-10-14] MEDS ORDERED: SENNA TAB PO ONE (10:30)
[2018-10-14] MEDS ORDERED: MAGNESIUM HYDROXIDE 30ML CUP PO ONE (10:30)
--- NOTE | 2018-10-15 17:21 | DELSUM ---
Delivery Summary A-C Datetime Report Generated by CPN: 10/15/2018 17:20 DELIVERY PERSONNEL Field Examiner: Marti, Kriss MATERNAL INFORMATION Delivery Anesthesia: Epidural Medications in Delivery: SEE ANESTHESIA RECORD Delivery QBL (ml): 600 Placenta Cultured: No Maternal Complications: None LABOR SUMMARY EDC: 10/13/2018 00:00 No. Babies in Womb: 1 Attempted: No Labor Anesthesia: Epidural LABOR INFORMATION Reason for Induction: Not Applicable Onset of Labor: 10/10/2018 09:30 Oxytocin: Augmentation Group B Beta Strep: Negative Antibiotics # of Doses: 5 Antibiotics Time of Last Dose: 10/11/2018 20:10 Steroids Given: None Reason Steroids Not Administered: Not Applicable MEMBRANES Membranes Rupture Method: Spontaneous Rupture of Membranes: 10/10/2018 09:30 Length of Rupture (hr): 34.93 Amniotic Fluid Color: Light Meconium Amniotic Fluid Amount: Small Amniotic Fluid Odor: None STAGES OF LABOR Stage 3 hr: 0 Stage 3 min: 1 Total Time in Labor hr: 34 Total Time in Labor min: 57 CSECTION DELIVERY Primary Indication: Failure of Descent CSection Urgency: Elective CSection Incidence: Primary Labor: Labor Elective: Elective CSection Incision: Lower Uterine Transverse BABY A INFORMATION Infant Delivery Date/Time: 10/11/2018 20:26 Method of Delivery: Born in Route : No : N/A Forceps: N/A Vacuum Extraction: N/A Shoulder Dystocia : N/A SHOULDER DYSTOCIA BABY A Delivery Date/Time: 10/11/2018 20:26 PRESENTATION/POSITION BABY A Presentation: Cephalic Cephalic Presentation: Vertex Vertex Position: Left Occipital Posterior Breech Presentation: N/A PLACENTA INFORMATION BABY A Placenta Delivery Time : 10/11/2018 20:27 Placenta Method of Delivery: Manual Removal Placenta Status: Delivered SCORES BABY A Heart Rate 1 min: >100 bpm Resp Effort 1 min: Good Cry Reflex Irritability 1 min: Cough/Sneeze/Pulls Away Muscle Tone 1 min: Active Motion Color 1 min: Body [place], Extremit Blue Resuscitation Effort 1 min: Tactile Stimulation SCORE 1 MIN: 9 Heart Rate 5 min: >100 bpm Resp Effort 5 min: Good Cry Reflex Irritability 5 min: Cough/Sneeze/Pulls Away Muscle Tone 5 min: Active Motion Color 5 min: Body [place], Extremit Blue Resuscitation Effort 5 min: Tactile Stimulation SCORE 5 MIN: 9 INFANT INFORMATION BABY A Gestational Age at Delivery: 39.5 Gestational Status: Full Term- 39- 40.6 Weeks Infant Outcome : Liveborn Infant Condition : Stable Sex: Male IDENTIFICATION/MEDS BABY A ID Band Number: [id number] ID Band Location: Right Leg; Left Arm Sensor Applied: Yes Sensor Number: [id number] Sensor Location : Cord Clamp Vitamin K Given : Not Given Erythromycin Given: Not Given WEIGHT/LENGTH BABY A Birthweight (gm): 3880 Weight (lb): 8 Infant Weight (oz): 9 Infant Length (in): 20.00 Infant Length (cm): 50.80 CORD INFORMATION BABY A No. Cord Vessels: 3 Nuchal Cord : N/A Cord Blood Taken: Yes Suction: Mouth; Nose ASSESSMENT BABY A Infant Complications: Meconium Physical Findings at Delivery: Within Normal Limits Infant Respirations: Appears Normal Marketing Regional Consultant/ALS Called : No Infant Care By: ALIZE Transferred To: Remains with Mother
== END 2018-10-14 16:35 | disposition home or self-care (01) | DRG 788 ==
LOC: OBT 10:28 → L-D 10:28 → OBT 11:15 → L-D 11:45 → PP1 10-12 00:33
PROVIDERS: ADMIT Obstetrics & Gynecology; ATTEND Obstetrics & Gynecology
PROC: 10D00Z1 Extraction of Products of Conception, Low, Open Approach (ICD-10-PCS; principal; 2018-10-11)
DX: O77.0 Labor and delivery complicated by meconium in amniotic fluid (principal); Z3A.39 39 weeks gestation of pregnancy; Z37.0 Single live birth
CPT/HCPCS: 62322; 76815; 76818; 84112; 85025; 85610; 85730; 86592; 86850; 86900; 86901; 99464; G0463; J0290; J0456; J0690; J1885; J2210; J2270; J2274; J2370; J2405; J2590; J2765; J3010; J7120